=== PATIENT | female | born 1985 | race Caucasian/White ===

== ENCOUNTER → 2021-12-29 | Outpatient (CLI) | payer OTHER | LOC: CARD 10:12 | PROVIDERS: ATTEND Nurse Practitioner Adult Health | DX: N63.10 Unspecified lump in the right breast, unspecified quadrant (principal); M79.10 Myalgia, unspecified site; M79.605 Pain in left leg; M79.604 Pain in right leg | CPT/HCPCS: 77066; 93925 ==